=== PATIENT | male | born 1960 | race Caucasian/White ===

== ENCOUNTER 2022-04-28 11:52 | Inpatient (IN) | payer MEDICAID, OTHER ==
[~2022-04-28] VITALS: Ht 190.5 cm; Wt 90.8 kg
[2022-04-28] MEDS ORDERED: IOHEXOL 350 MG/ML 100 ML VIAL ONE (12:04)
[2022-04-28] MEDS ORDERED: SODIUM CHLORIDE 0.9% 100 ML ONE (12:04)
[2022-04-28 12:22] LABS: BASOPHILS % (AUTO) 0.9 % (0.0-2.0); HEMATOCRIT 46.8 % (41-53); HEMOGLOBIN 15.4 g/dL (13.5-17.5); LYMPHOCYTES # (AUTO) 1.4 K/uL (1.0-4.8); LYMPHOCYTES % (AUTO) 15.7 % (22.0-44.0); MEAN CORPUSCULAR HEMOGLOBIN 29.7 pg (26.0-34.0); MEAN CORPUSCULAR VOLUME 90 fL (80-100); MONOCYTES # (AUTO) 0.6 K/uL (0.1-1.0); MONOCYTES % (AUTO) 6.4 % (2.0-9.0); NEUTROPHILS # (AUTO) 6.7 K/uL (1.8-7.7); PLATELET COUNT (AUTO) 269 K/uL (150-450); RED CELL DISTRIBUTION WIDTH 13.9 % (11.5-14.5)
[2022-04-28 12:37] LABS: PROTHROMBIN TIME 10.7 SEC (9.4-11.6)
[2022-04-28 12:38] LABS: CALCIUM, TOTAL 9.4 mg/dL (8.8-10.5); CREATININE 1.38 mg/dL (0.60-1.30); POTASSIUM 4.3 mmol/L (3.5-5.1)
[2022-04-28 12:44] LABS: BILIRUBIN,TOTAL 0.4 mg/dL (0.1-1.0); TOTAL PROTEIN, SERUM 8.3 g/dL (6.4-8.2)
[2022-04-28] MEDS ORDERED: CLOP75TA60 PO (13:20)
[2022-04-28] MEDS ORDERED: TAMS-13 PO (13:20)
[2022-04-28] MEDS ORDERED: ATOR40TA28 PO (13:20)
[2022-04-28] MEDS ORDERED: ASPI-1444 PO (13:20)
[2022-04-28] MEDS ORDERED: CLON0.1T PO (13:20)
[2022-04-28] MEDS ORDERED: FINA-27 PO (13:20)
[2022-04-28] MEDS ORDERED: ISOS60TA77 PO (13:22)
[2022-04-28] MEDS ORDERED: AMLO-258 PO (13:22)
[2022-04-28] MEDS ORDERED: CLON0.2T PO (15:42)
[2022-04-28] MEDS ORDERED: MAGNESIUM HYDROXIDE SUSPENSION 30 ML UDCUP PO PRN (15:45)
[2022-04-28] MEDS ORDERED: ZOLPIDEM TARTRATE 5 MG TABLET PO PRN (15:45)
[2022-04-28] MEDS ORDERED: HYDROCODONE/ACETAMINOPHEN 5-325 MG TABLET PO PRN (15:45)
[2022-04-28] MEDS ORDERED: ACETAMINOPHEN 325 MG TABLET PO PRN (15:45)
[2022-04-28] MEDS ORDERED: ONDANSETRON HCL 4 MG/2 ML VIAL IVP PRN (15:45)
[2022-04-28] MEDS ORDERED: MORPHINE SULFATE 2 MG/ML SYRINGE IVP PRN (15:45)
[2022-04-28] MEDS ORDERED: BISACODYL 10 MG RECTAL RECTAL SUPPOSITORY PR PRN (15:45)
[2022-04-28 16:00] VITALS: BP 183/94
[2022-04-28] MEDS ORDERED: CloNIDine HCL 0.1 MG TABLET PO SCH (16:00)
[2022-04-28 16:01] LABS: APPEARANCE,URINE CLEAR (CLEAR); BILIRUBIN,URINE NEGATIVE (NEGATIVE); GLUCOSE, URINE (UA) NEGATIVE (NEGATIVE); KETONES,URINE NEGATIVE (NEGATIVE); LEUKOCYTE ESTERASE ,URINE NEGATIVE (NEGATIVE); NITRATE,URINE NEGATIVE (NEGATIVE); OCCULT BLOOD,URINE NEGATIVE (NEGATIVE); PROTEIN,URINE NEGATIVE (NEGATIVE); SPECIFIC GRAVITIY, URINE 1.035 (1.003-1.030); UROBILINOGEN,URINE <=1.0 mg/dL (<=1.0)
[2022-04-28 16:06] LABS: AMPHET/METH SCREEN,URINE NEGATIVE (NEGATIVE); BARBITURATE SCREEN, URINE NEGATIVE (NEGATIVE); BENZODIAZEPINES SCREEN,URINE NEGATIVE (NEGATIVE); CANNABINOID SCREEN,URINE NEGATIVE (NEGATIVE); COCAINE SCREEN,URINE NEGATIVE (NEGATIVE); METHADONE SCREEN, URINE NEGATIVE (NEGATIVE); OPIATE SCREEN,URINE NEGATIVE (NEGATIVE)
[2022-04-28 16:07] LABS: PHENCYCLIDINE SCREEN,URINE NEGATIVE (NEGATIVE)
[2022-04-28 16:08] LABS: BACTERIA,URINE None Seen /HPF (None Seen); RBC,URINE None Seen /HPF (0-2); SQUAMOUS EPITHELIAL CELL,UR Few /LPF (None Seen); WBC,URINE None Seen /HPF (0-5)
[2022-04-28] MEDS: CloNIDine HCL 0.2 MG TABLET PO SCH ×2 (16:39→20:44)
[2022-04-28] MEDS: HEPARIN SODIUM,PORCINE 5,000 UNITS/ML VIAL SQ SCH ×2 (16:39→23:43)
[2022-04-28 20:00] VITALS: BP 159/90
[2022-04-28] MEDS: DOCUSATE SODIUM 100 MG CAPSULE PO SCH (20:45)
[2022-04-28] MEDS ORDERED: CLOPIDOGREL BISULFATE 75 MG TABLET PO SCH (21:00)
[2022-04-28 21:30] VITALS: BP 163/93
[2022-04-29 00:35] VITALS: BP 169/101
[2022-04-29 04:49] VITALS: BP 169/95
[2022-04-29 08:00] VITALS: BP 188/103
[2022-04-29] MEDS: CloNIDine HCL 0.2 MG TABLET PO SCH ×2 (08:09→16:18)
[2022-04-29] MEDS: HEPARIN SODIUM,PORCINE 5,000 UNITS/ML VIAL SQ SCH ×2 (08:10→16:18)
[2022-04-29] MEDS: DOCUSATE SODIUM 100 MG CAPSULE PO SCH (08:10)
[2022-04-29] MEDS ORDERED: ATORVASTATIN CALCIUM 40 MG TABLET PO SCH (09:00)
[2022-04-29] MEDS ORDERED: ASPIRIN 81 MG DR TABLET PO SCH (09:00)
[2022-04-29] MEDS ORDERED: TAMSULOSIN HCL 0.4 MG CAPSULE PO SCH (09:00)
[2022-04-29] MEDS ORDERED: FINASTERIDE 5 MG TABLET PO SCH (09:00)
[2022-04-29] MEDS ORDERED: PANTOPRAZOLE SODIUM 40 MG DR TABLET PO SCH (09:00)
[2022-04-29] MEDS ORDERED: ISOSORBIDE MONONITRATE 60 MG ER TABLET PO SCH (09:00)
[2022-04-29] MEDS ORDERED: AmLODIPine BESYLATE 10 MG TABLET PO SCH (09:00)
[2022-04-29] MEDS: HydrALAZINE HCL 25 MG TABLET PO SCH ×2 (11:49→16:18)
[2022-04-29 12:00] VITALS: BP 170/94
[2022-04-29] MEDS ORDERED: ATOR40TA71 PO (13:15)
[2022-04-29] MEDS ORDERED: CLOP75TA60 PO (13:15)
[2022-04-29] MEDS ORDERED: ISOS60TA77 PO (13:15)
[2022-04-29] MEDS ORDERED: ASPI-1444 PO (13:15)
[2022-04-29] MEDS ORDERED: CLON0.2T2 PO (13:15)
[2022-04-29] MEDS ORDERED: FINA-27 PO (13:15)
[2022-04-29] MEDS ORDERED: TAMS-13 PO (13:15)
[2022-04-29] MEDS ORDERED: HYDR25TA84 PO (13:15)
[2022-04-29] MEDS ORDERED: AMLO-258 PO (13:15)
[2022-04-29 16:00] VITALS: BP 179/86
== END 2022-04-29 17:20 | disposition home or self-care (01) | DRG 199 ==
LOC: EMS 11:54 → ICU 14:05 → 5S 21:53
PROVIDERS: ADMIT Internal Medicine; ATTEND Internal Medicine
DX: I16.0 Hypertensive urgency (principal); I69.354 Hemiplegia and hemiparesis following cerebral infarction affecting left non-dominant side; E78.5 Hyperlipidemia, unspecified; N40.0 Benign prostatic hyperplasia without lower urinary tract symptoms; I10 Essential (primary) hypertension; I65.23 Occlusion and stenosis of bilateral carotid arteries; Z79.02 Long term (current) use of antithrombotics/antiplatelets; Z79.82 Long term (current) use of aspirin; Z79.899 Other long term (current) drug therapy
CPT/HCPCS: 70496; 70498; 71045; 80053; 81001; 82948; 84484; 85025; 85610; 85730; 87081; 93005; 99285; J1644; J7050; Q9967; 36415-L1; 36415-TC; 70450; 70450-TC